=== PATIENT | female | born 1980 | race Caucasian/White ===

== ENCOUNTER 2017-02-15 20:38 | Observation (INO) | payer SELFPAY ==
[~2017-02-15] VITALS: Ht 162.6 cm; Wt 56.6 kg
--- NOTE | 2017-02-15 20:38 | NUR ---
ROOM PATIENT TO ROOM VIA EMS COT. REPORT RECEIVED. CARES ASSUMED.
[2017-02-15] MEDS ORDERED: HALOPERIDOL 5 MG/ML INJECTION IV ONE (21:00)
--- NOTE | 2017-02-15 21:00 | NUR ---
1:1 PATIENT NEEDS 1:1 CARE DUE TO HER BEING A HARM TO HERSELF. SHE IS HIGHLY AGITATED AND TWEAKING FROM DRUGS.
--- NOTE | 2017-02-15 21:07 | NUR ---
ELIMINATION PATIENT AMBULATES TO BATHROOM FOR UA
--- NOTE | 2017-02-15 21:11 | ERPDOC ---
Departure Disposition Decision Date: Feb 16, 2017 Disposition Decision Time: 01:42 Disposition: 02 TO [facility] Impression Impression Impression: Primary Impression: Mental status change Additional Impressions: Hypothyroid Drug ingestion Chronic mental illness Severity: Moderate Condition: Stable Seen By: Physician only Problems/Meds/Labs Reviewed?: Yes Medications reviewed and manag: Yes Follow up care ordered?: Yes Mental Status: Confused HPI - General Medical General Chief Complaint: Psychiatric Problems Stated Complaint: AGITATION Time Seen by Provider: 20:54 HPI - General Medical Initial Comments 36-year-old female high on methamphetamine and pain pills. Patient got out of long term yesterday after six-month sentence, she immediately got a hold of "ice" and smoked it and a pain pill. She is court ordered to be admitted to [facility] facility. She had some friends primary doctor up with the drugs. She is aggressively ranting and raving, unable to make coherent sentence, very animated , nearly bouncing off the quinn. She refuses Ativan, stating that God says only Ativan works for her. Allergies: Coded Allergies: carbamazepine (Verified Allergy, Intermediate, 02/15/17) SKIN RASH Past History Unable to Obtain PMH Due to: intoxication Patient Medical History Problem List Updates: Drug addiction Patient Surgical History Unknown Review of Systems Unable to Obtain ROS Due to: intoxication Physical Exam General Vitals and Pain First Documented Vital Signs Date Time Temp Pulse Resp B/P Pulse Ox O2 Delivery O2 Flow Rate FiO2 02/15/17 21:38 97.6 120 18 127/90 97 Room Air Weight: Kilograms: Height (feet): Height (inches): Triage Pain Scale: Differential Diagnoses Considering: Drug Overdose, Medication Effect, Psychosis, Other (drug intoxication) Progress Results/Orders Orders Procedure Category Date Status Time Haloperidol Lactate PHA 02/15/17 Complete (Haldol 5 Mg/Ml Inj) 21:00 Asenapine Maleate PHA 02/15/17 Complete (Saphris) 21:15 Lorazepam (Ativan) PHA 02/15/17 Complete 21:15 Cmp - Comprehensive LAB 02/15/17 Complete Metabolic 21:23 Cbc W/Auto LAB 02/15/17 Complete Diff-Reflex Manual 21:23 Ethanol LAB 02/15/17 Complete 21:23 Tsh - Thyroid Stim LAB 02/15/17 Complete Hormone 21:23 D-Dimer LAB 02/15/17 Complete 21:23 Acetaminophen LAB 02/15/17 Complete 21:23 Salicylate LAB 02/15/17 Complete 21:23 Ua, Dip Wreflex LAB 02/15/17 Complete Microsc & Ceramist 21:23 Drug Screen LAB 02/15/17 Complete Urine-Test At [facility] 21:23 LAB 02/15/17 Complete Qualitative, Urine 21:23 Iv Lock (Ed Only) EDM 02/15/17 Transmitted 21:23 Asenapine Maleate PHA 02/15/17 Logged (Saphris) 22:45 Chest, Pa & Lateral RAD 02/15/17 Taken 22:47 Lorazepam (Ativan) PHA 02/15/17 Complete 23:45 Lab Results Laboratory Tests Test 02/15/17 21:11 White Blood Count 15.2T/MM3 Red Blood Count 4.51M/MM3 Hemoglobin 12.8GM/DL Hematocrit 37.4% Mean Corpuscular Volume 82.9UM3 Mean Corpuscular Hemoglobin 28.4UUG Mean Corpuscular Hemoglobin Concent 34.2GM/DL RDW Standard Deviation 39.7FL Platelet Count 296T/MM3 Mean Platelet Volume 12.0UM3 Immature Granulocyte % (Auto) % Neutrophils (%) (Auto) % Lymphocytes (%) (Auto) % Monocytes (%) (Auto) % Eosinophils (%) (Auto) % Basophils (%) (Auto) % Absolute Immature Granulocyte (auto T/MM3 Absolute Neutrophils (auto) T/MM3 Absolute Lymphocytes (auto) T/MM3 Absolute Monocytes (auto) T/MM3 Absolute Eosinophils (auto) T/MM3 Absolute Basophils (auto) T/MM3 Neutrophils % (Manual) 69.0% Band Neutrophils % 1.0% Lymphocytes % (Manual) 21.0% Monocytes % (Manual) 8.0% Eosinophils % (Manual) 1.0% Absolute Neutrophils (Manual) 10.5T/MM3 Band Neutrophils # 0.2T/MM3 Lymphocytes # (Manual) 3.2T/MM3 Monocytes # (Manual) 1.2T/MM3 Eosinophils # (Manual) 0.2T/MM3 Red Cell Morphology Comment Normal D-Dimer 198NG/ML Urine Collection Type Voided-not cc-midstr Urine Color Yellow Urine Turbidity Clear Urine pH 5.0 Urine Specific Henriette >=1.030 Urine Protein Trace Urine Glucose (UA) Negative Urine Ketones Trace Urine Blood Negative Urine Nitrite Negative Urine Bilirubin 1+ Urine Urobilinogen 0.2EU/DL Urine Leukocyte Esterase Negative Urinalysis Comment Microscopic not ind. Urine Test Negative Turbidity < 20 Sodium Level 144MEQ/L Potassium Level 3.7MEQ/L Chloride Level 105MEQ/L Carbon Dioxide Level 25MEQ/L Anion Gap 14MEQ/L Blood Urea Nitrogen 17.0MG/DL Creatinine 1.0MG/DL Glomerular Filtration Rate Calc 63 BUN/Creatinine Ratio 17RATIO Glucose Level 148MG/DL Calculated Osmolality 282MOSM/KG Calcium Level 9.8MG/DL Total Bilirubin 1.10MG/DL Icterus Index < 2 Aspartate Amino Transf (AST/SGOT) 94U/L Alanine Aminotransferase (ALT/SGPT) 39U/L Alkaline Phosphatase 77U/L Total Protein 8.4G/DL Albumin 4.8G/DL Globulin 3.6G/DL Albumin/Globulin Ratio 1.3RATIO Thyroid Stimulating Hormone (TSH) 8.86MIU/L Chemistry Specimen Hemolysis < 15 Salicylates Level < 1.0MG/DL Urine Opiates Screen PositiveNG/ML Urine Oxycodone Screen NegativeNG/ML Urine Methadone Screen NegativeNG/ML Urine Propoxyphene Screen NegativeNG/ML Acetaminophen Level < 10UG/ML Urine Barbiturates Screen NegativeNG/ML Urine Tricyclic Antidepressants PositiveNG/ML Urine Phencyclidine Screen NegativeNG/ML Urine Amphetamines Screen PositiveNG/ML Urine Methamphetamines Screen PositiveNG/ML Urine Benzodiazepines Screen NegativeNG/ML Urine Cocaine Screen PositiveNG/ML Urine Cannabinoids Screen PositiveNG/ML Urine Drug Screen Confirmation Sent out Urine Drug Screen Information Pending Alcohol, Quantitative <10MG/DL Medications Current ED Medications Haloperidol Lactate (Haldol 5 Mg/ml Inj) 5 mg O ONCE IV ; Start 02/15/17 at 21: 00; Stop 02/15/17 at 21:01; Status DC Asenapine (Saphris) 5 mg O ONCE SL Last administered on 02/15/17 21:21; Start 02/15/17 at 21:15; Stop 02/15/17 at 21:16; Status DC Lorazepam (Ativan) 1 mg O ONCE IV Last administered on 02/15/17 21:22; Start 02/15/17 at 21:15; Stop 02/15/17 at 21:16; Status DC Asenapine (Saphris) 5 mg O ONCE SL ; Start 02/15/17 at 22:45; Stop 02/15/17 at 22 :46; Status UNV Lorazepam (Ativan) 1 mg O ONCE IV ; Start 02/15/17 at 23:45; Stop 02/15/17 at 23: 46; Status DC Progress Progress Patient's labs returned showing mildly elevated TSH of 8.8, white blood count of 15.2 and tox screen positive for opiate tricyclic amphetamine methamphetamine and cocaine and cannabinoids. She was brought to ED due to aggressive behavior which intimidated the patient's at the rehabilitation. Screen was attempted but unable to be completed due to effect of ingested drugs. She will be admitted to observation, given IV fluids and placed on telemetry while she metabolizes the drugs. Psych will return in reevaluate her in the morning to determine need for psychiatric hold versus other treatments. Question becomes if this is delirium or toxic encephalopathy from the drugs. JUSTINE VALDOVINOS MD Feb 15, 2017 21:11
[2017-02-15] MEDS ORDERED: ASENAPINE 5mg SUBLINGUAL TAB SL ONE ×2 (21:15→22:45)
[2017-02-15] MEDS ORDERED: LORAZEPAM 2 MG/ML INJECTION IV ONE ×2 (21:15→23:45)
[2017-02-15 21:33] LABS: BLOOD, URINE NEGATIVE (NEGATIVE); COLOR,URINE YELLOW (YELLOW); LEUKOCYTE ESTERASE ,URINE NEGATIVE (NEGATIVE); NITRITE,URINE NEGATIVE (NEGATIVE); UROBILINOGEN,URINE 0.2 EU/DL (NORMAL)
[2017-02-15 21:34] LABS: HCT - HEMATOCRIT 37.4 % (36-46); HGB - HEMOGLOBIN 12.8 GM/DL (12-16); MEAN CORPUSCULAR HGB 28.4 UUG (26-34); MEAN CORPUSCULAR HGB CONC(MCHC 34.2 GM/DL (31-37); MEAN CORPUSCULAR VOLUME 82.9 UM3 (80-100); RED BLOOD COUNT 4.51 M/MM3 (4.00-5.20); WBC - WHITE BLOOD COUNT 15.2 T/MM3 (4.5-11.0)
[2017-02-15] MEDS ORDERED: QUET200T PO (21:37)
[2017-02-15] MEDS ORDERED: BUPR150T3 (21:37)
[2017-02-15] MEDS ORDERED: CITA40TA14 PO (21:37)
[2017-02-15 21:39] LABS: ACETAMINOPHEN < 10 UG/ML (10-30); ALBUMIN 4.8 G/DL (3.5-5.0); ALBUMIN/GLOBULIN RATIO 1.3 RATIO (1.1-2.2); ALKALINE PHOSPHATASE 77 U/L (38-126); ALT (SGPT) 39 U/L (9-52); ANION GAP 14 MEQ/L (5-15); AST (SGOT) 94 U/L (14-36); BUN/CREATININE RATIO 17 RATIO (6-26); CALCIUM 9.8 MG/DL (8.4-10.2); CHLORIDE 105 MEQ/L (98-107); CO2 - CARBON DIOXIDE 25 MEQ/L (22-30); ETHANOL <10 MG/DL (<10); GLOMERULAR FILTRATION RATE 63; GLUCOSE 148 MG/DL (65-110); POTASSIUM 3.7 MEQ/L (3.6-5); SALICYLATE < 1.0 MG/DL (2-20); SODIUM 144 MEQ/L (134-144); TOTAL PROTEIN 8.4 G/DL (6.3-8.2)
[2017-02-15 21:43] LABS: AMPHETAMINE SCREEN,URINE POSITIVE; BARBITURATE SCREEN,URINE NEGATIVE; BENZODIAZEPINES SCREEN,URINE NEGATIVE; CANNABINOID SCREEN,URINE POSITIVE; COCAINE SCREEN,URINE POSITIVE; METHADONE SCREEN, URINE NEGATIVE; METHAMPHETAMINE SCREEN, URINE POSITIVE; OPIATE SCREEN,URINE POSITIVE; PHENCYCLIDINE SCREEN,URINE NEGATIVE; TRICYCLIC ANTIDEPRESSANT,URINE POSITIVE
[2017-02-15 21:47] LABS: BAND NEUTROPHILS # 0.2 T/MM3; EOSINOPHILS # (MANUAL) 0.2 T/MM3 (0-0.5); LYMPHOCYTES # (MANUAL) 3.2 T/MM3 (1-4.8); MONOCYTES # (MANUAL) 1.2 T/MM3 (0-0.8); NEUTROPHILS #(MANUAL)-ABSOLUTE 10.5 T/MM3 (1.8-7.7); TOTAL CELLS COUNTED 100 %
[2017-02-15 22:24] LABS: THYROID STIM HORMONE-TSH 8.86 MIU/L (0.47-4.68)
--- NOTE | 2017-02-15 23:00 | NUR ---
COMMUNICATION ZOIE, SCREENER WITH PV CALLS AND STATES HE WILL BE ON THE WAY TO COME IN AND SCREEN THE PT.
--- NOTE | 2017-02-15 23:45 | NUR ---
[facility], [facility] SCREENER HERE TO SCREEN PATIENT.
--- NOTE | 2017-02-16 00:15 | NUR ---
ELIMINATION PATIENT AMBULATES TO BATHROOM. PATIENT IS GROGGY FROM MEDICATIONS.
--- NOTE | 2017-02-16 00:27 | NUR ---
COMMUNICATION ZOIE FROM [facility] MAKES PHONE CALLS TO FIND PLACEMENT FOR PATIENT.
--- NOTE | 2017-02-16 01:15 | NUR ---
STATUS PT IS AWOKE TO OBTAIN VITAL SIGNS, PT AWAKES EASILY, IS APPROPRIATE, AND DENIES ANY NEEDS AT THIS TIME. THANKS STAFF.
--- NOTE | 2017-02-16 01:40 | NUR ---
REPORT GIVEN TO MAGNOLIA ERICKSON AT THIS TIME.
[2017-02-16] MEDS ORDERED: HALOPERIDOL 5 MG/ML INJECTION IV PRN (01:45)
[2017-02-16] MEDS ORDERED: LORAZEPAM 2 MG/ML INJECTION IV PRN (01:45)
--- NOTE | 2017-02-16 02:10 | NUR ---
arrival to unit patient arrived via cart from ed. patient is a&o x3, but falls asleep during conversation. positioned for comfort. vss. room air.
--- NOTE | 2017-02-16 02:10 | NUR ---
DEPART PT IS TAKEN VIA CART TO ROOM 144 AT THIS TIME, MAGNOLIA ERICKSON PRESENT TO ACCEPT PT. PT TRANSFERS SELF FROM CART TO BED, UNDRESSES AND CLIMBS UP INTO BED.
[2017-02-16 02:13] VITALS: Ht 162.6 cm; Wt 56.6 kg
[2017-02-16 02:22] VITALS: BP 112/67; PULSE 96; RESP 16; TEMP 96.2; O2SAT 98
--- NOTE | 2017-02-16 03:01 | HPPDOC ---
TARAS NOWAK MD 02/16/17 0252: HPI - Adult Date DATE: 02/16/17 TIME: 02:47 General Chief Complaint: racing thoughts History of Present Illness Please note that the patient was seen via telemedicine with nursing assistance on 02/16/2017. Ms. Jimenez is a 36yo woman with h/o bipolar disorder, ADD, back pain from cervical disk disease, who [facility] in [facility] with a few of her seroquel and other med available. She had a court order after the 6 month incarceration for drug rehab and was to check into [facility], within 24 hours. 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 She will not admit that now, but recognizes racing thoughts improved after 2mg IV ativan and saphris in the ED. No other fevers, sob, pain except in the neck and chronic. She is not a good historian, and please see ED staff note. She states bipolar had been stable on the wellbutrin, citalopram, and seroquel, but she was not given more than a couple day supply. Past Medical History Past Medical History Patient's Medical History: (1) Bipolar disorder (2) ADD (attention deficit disorder) (3) Cervical disc disease (4) Polysubstance abuse Drug addiction Surgical History Patient's Surgical History: C-sections Current Medications Home Meds Reported Medications Quetiapine Fumarate (Seroquel) 200 Mg Tablet, 200 MG PO BID, TAB 02/15/17 Citalopram Hydrobromide (Celexa) 40 Mg Tablet, 1 TAB PO DAILY, TAB 02/15/17 Bupropion HCl (Wellbutrin Sr) 150 Mg Tablet, BID 02/15/17 Allergies: Coded Allergies: carbamazepine (Verified Allergy, Intermediate, 02/15/17) SKIN RASH Family History Family History: parents alive with mental illness Social History Smoking Status: Current every day smoker Substance Use Type: amphetamines, opiates, methamphetamine Marital Status: Single Current Occupational Status: unemployed Advance Directives: No DPOA for Healthcare Only Social History Comments parents alive with mental illness Review of Systems Unable to Obtain ROS Due to: clinical condition Comments 10+ systems negative or incomplete due to acute mental illness Physical Exam General General Nourishment: thin General Body Habitus: disheveled Vital Signs Vital Signs Date Time Temp Pulse Resp B/P Pulse Ox O2 Delivery O2 Flow Rate FiO2 02/16/17 02:22 96.2 96 16 112/67 98 Room Air Height (Feet): 5 Height (Inches): 4.00 Telemetry Rhythm: Sinus Rhythm Eyes Brief: FOUND: EOMI Respiratory Brief: FOUND: clear all whyte, equal bilaterally, symmetrical, NOT FOUND: wheezes Cardiovascular (brief) Cardiac Brief: FOUND: regular rate, regular rhythm, NOT FOUND: pedal edema Capillary Refill: <2 sec Abdomen (brief) Abdominal Brief: FOUND: BS normo active x4 Integumentary (brief) Integumentary Brief: FOUND: pink Neurologic (brief) Neurological Brief: FOUND: cranial 2-12 intact Comments alert but not fully oriented, with no lateralizing signs, disorganized thoughts Neurologic RN Documented GCS Eye Opening: Verbal: Motor: Total: Laboratory Laboratory Tests Test 02/15/17 21:11 White Blood Count 15.2T/MM3 Red Blood Count 4.51M/MM3 Hemoglobin 12.8GM/DL Hematocrit 37.4% Mean Corpuscular Volume 82.9UM3 Mean Corpuscular Hemoglobin 28.4UUG Mean Corpuscular Hemoglobin Concent 34.2GM/DL RDW Standard Deviation 39.7FL Platelet Count 296T/MM3 Mean Platelet Volume 12.0UM3 Immature Granulocyte % (Auto) % Neutrophils (%) (Auto) % Lymphocytes (%) (Auto) % Monocytes (%) (Auto) % Eosinophils (%) (Auto) % Basophils (%) (Auto) % Absolute Immature Granulocyte (auto T/MM3 Absolute Neutrophils (auto) T/MM3 Absolute Lymphocytes (auto) T/MM3 Absolute Monocytes (auto) T/MM3 Absolute Eosinophils (auto) T/MM3 Absolute Basophils (auto) T/MM3 Neutrophils % (Manual) 69.0% Band Neutrophils % 1.0% Lymphocytes % (Manual) 21.0% Monocytes % (Manual) 8.0% Eosinophils % (Manual) 1.0% Absolute Neutrophils (Manual) 10.5T/MM3 Band Neutrophils # 0.2T/MM3 Lymphocytes # (Manual) 3.2T/MM3 Monocytes # (Manual) 1.2T/MM3 Eosinophils # (Manual) 0.2T/MM3 Red Cell Morphology Comment Normal D-Dimer 198NG/ML Urine Collection Type Voided-not cc-midstr Urine Color Yellow Urine Turbidity Clear Urine pH 5.0 Urine Specific Yawkey >=1.030 Urine Protein Trace Urine Glucose (UA) Negative Urine Ketones Trace Urine Blood Negative Urine Nitrite Negative Urine Bilirubin 1+ Urine Urobilinogen 0.2EU/DL Urine Leukocyte Esterase Negative Urinalysis Comment Microscopic not ind. Urine Test Negative Turbidity < 20 Sodium Level 144MEQ/L Potassium Level 3.7MEQ/L Chloride Level 105MEQ/L Carbon Dioxide Level 25MEQ/L Anion Gap 14MEQ/L Blood Urea Nitrogen 17.0MG/DL Creatinine 1.0MG/DL Glomerular Filtration Rate Calc 63 BUN/Creatinine Ratio 17RATIO Glucose Level 148MG/DL Calculated Osmolality 282MOSM/KG Calcium Level 9.8MG/DL Total Bilirubin 1.10MG/DL Icterus Index < 2 Aspartate Amino Transf (AST/SGOT) 94U/L Alanine Aminotransferase (ALT/SGPT) 39U/L Alkaline Phosphatase 77U/L Total Protein 8.4G/DL Albumin 4.8G/DL Globulin 3.6G/DL Albumin/Globulin Ratio 1.3RATIO Thyroid Stimulating Hormone (TSH) 8.86MIU/L Chemistry Specimen Hemolysis < 15 Salicylates Level < 1.0MG/DL Urine Opiates Screen PositiveNG/ML Urine Oxycodone Screen NegativeNG/ML Urine Methadone Screen NegativeNG/ML Urine Propoxyphene Screen NegativeNG/ML Acetaminophen Level < 10UG/ML Urine Barbiturates Screen NegativeNG/ML Urine Tricyclic Antidepressants PositiveNG/ML Urine Phencyclidine Screen NegativeNG/ML Urine Amphetamines Screen PositiveNG/ML Urine Methamphetamines Screen PositiveNG/ML Urine Benzodiazepines Screen NegativeNG/ML Urine Cocaine Screen PositiveNG/ML Urine Cannabinoids Screen PositiveNG/ML Urine Drug Screen Confirmation Sent out Alcohol, Quantitative <10MG/DL Assessment & Plan Problems: (1) Encephalopathy acute Status: Acute Assessment & Plan: toxic encephalopathy due to polysubstance abuse and ? delirium from psychiatric disease as well. obs admit with IVF and supportive care with AM psych eval for services/plan. prn ativan and haldol. (2) Polysubstance abuse Status: Acute (3) Bipolar disorder Status: Chronic Assessment & Plan: likely same wellbutrin, citalopram and seroquel (4) ADD (attention deficit disorder) Status: Chronic (5) Cervical disc disease Status: Chronic (6) Elevated TSH Assessment & Plan: she is unaware of previous hypothyroid, and will check T4 to see if therapy warranted with noted hyperglycemia recheck as well. Leukocytosis likely demargination from drugs, with no fever and UA no infection. Code Status Full Code Hospital Course Summary Disclaimer The hospital course summary below is not to be considered part of the above Progress Note. SHERYL HERNANDEZ MD 02/16/17 7934: Past Medical History Current Medications Home Meds Reported Medications Quetiapine Fumarate (Seroquel) 200 Mg Tablet, 200 MG PO BID, TAB 02/15/17 Citalopram Hydrobromide (Celexa) 40 Mg Tablet, 1 TAB PO DAILY, TAB 02/15/17 Bupropion HCl (Wellbutrin Sr) 150 Mg Tablet, BID 02/15/17 Allergies: Coded Allergies: carbamazepine (Verified Allergy, Intermediate, 02/15/17) SKIN RASH Assessment & Plan Assessment Dr. Nowak's note reviewed, patient interviewed and examined. [id number]-old female discharged from [facility] days ago with subsequent methamphetamine and crack cocaine use. She was supposed to transfer immediately to inpatient drug rehabilitation from [facility] but cites several reasons this did not happen (psychiatric medications not called to the pharmacy in [place], transportation difficulties, etc.) prompting drug use described above. She presented to the emergency room and [place] last night where she was described as aggressively ranting and raving, unable to make coherent sentences, animated and nearly bouncing off the quinn. She refused Ativan citing God is the reason. Urine drug screen was positive for opiates, tricyclics, amphetamines, methamphetamine, cocaine, and marijuana. She was admitted for detox prior to transfer to drug rehabilitation. This morning the patient continues to blame circumstances for her failure to report to [facility] immediately after release from [facility] but is insistent that she wants to go to rehabilitation and pursue sobriety. She is able to describe her home medication/psychiatric regimen prescribed by a mental health facility in [place]. She received Haldol earlier this morning for agitation. PH/SH/FH-as above plus bilateral tubal ligation and prior biopsy right breast for benign disease. ROS-10 point review of systems is negative, last menstrual period was 02/03.EXAM General-temperature 98.0, blood pressure 118/67; NAD, alert, fluent speech HEENT-conjunctiva clear, sclera anicteric, EOMI, conjugate gaze, facial structure symmetric, oral membranes clear Lungs-respirations nonlabored, good airflow compressed sounds clear anteriorly and posteriorly Cardiac-regular rate/rhythm, S1-S2 Abd-soft, nontender, bowel sounds present, no palpable mass Ext-without edema Skin-a few small scattered bruises, puncture sites right wrist consistent with injection sites Neuro-moving all extremities well, no drift upper extremity, normal motor tone and power proximal/distal upper and lower extremities, sensation intact 4, cranial nerves II through XII intact Psych-cooperative, mild anxiety demonstrated with push of speech. Did not demonstrate paranoia during examination. Chest x-ray reviewed by myself-MADI. Laboratory data notable only for minor elevation of AST and TSH with normal free T4. UDS as previously noted. Resume home psychiatric regimen with Wellbutrin, Celexa, and Seroquel. Patient medically stable, anxious to continue drug rehabilitation. Stable for transfer to inpatient rehabilitation at [facility] after brief stay for continued detox at [facility] in [place]. Discharge to [facility] at this time. Please note patient was caught with powdered white substance in her room which she indicated was her Wellbutrin tablet that she had pocketed. She was preparing to snort the powder when caught by nursing staff. Substance removed from the room. Plan/Intensity of Service Chest x-ray reviewed by myself, laboratory data reviewed. Multiple conversation with nursing/case management regarding disposition. TARAS NOWAK MD Feb 16, 2017 02:52 SHERYL HERNANDEZ MD Feb 16, 2017 14:53
[2017-02-16] MEDS: LR 1,000 ML IV SCH ×2 (03:04→12:11)
[2017-02-16 04:15] VITALS: BP 126/75; PULSE 86; RESP 16; TEMP 96.4; O2SAT 99
[2017-02-16 05:29] LABS: BASOPHILS # (AUTO) 0.1 T/MM3 (0-0.2); BASOPHILS % (AUTO) 0.6 % (0-2); EOSINOPHILS # (AUTO) 0.2 T/MM3 (0-0.5); EOSINOPHILS % (AUTO) 1.7 % (0-4); HCT - HEMATOCRIT 35.5 % (36-46); HGB - HEMOGLOBIN 11.5 GM/DL (12-16); IMMATURE GRANULOCYTE # (AUTO) 0.01 T/MM3 (0.00-0.03); IMMATURE GRANULOCYTE % (AUTO) 0.1 % (0.0-0.5); LYMPHOCYTES % (AUTO) 22.5 % (23-45); MEAN CORPUSCULAR HGB 27.6 UUG (26-34); MEAN CORPUSCULAR HGB CONC(MCHC 32.4 GM/DL (31-37); MEAN CORPUSCULAR VOLUME 85.3 UM3 (80-100); MEAN PLATELET VOLUME 11.7 UM3 (9.4-12.4); MONOCYTES # (AUTO) 0.9 T/MM3 (0-0.8); MONOCYTES % (AUTO) 9.8 % (0-9.0); NEUTROPHILS #(AUTO)-ABSOLUTE 5.8 T/MM3 (1.8-7.7); NEUTROPHILS % (AUTO) 65.3 % (33-66); RED BLOOD COUNT 4.16 M/MM3 (4.00-5.20); WBC - WHITE BLOOD COUNT 8.8 T/MM3 (4.5-11.0)
--- NOTE | 2017-02-16 07:10 | NUR ---
BEGINNING OF SHIFT PT IS SLEEPING AT THIS TIME, BEDSIDE REPORT RECEIVED FROM MAGNOLIA ERICKSON. WILL CONTINUE TO MONITOR PT, LR RUNNING AT 100ML/HR. HR STABLE ON MONITOR. WILL CONTINUE TO MONITOR.
[2017-02-16 08:00] VITALS: BP 118/67; PULSE 87; RESP 14; TEMP 98; O2SAT 100
--- NOTE | 2017-02-16 08:32 | DI ---
INDICATION: ITS.REASON: medical screen, drug abuse. PROCEDURE: CHEST 2-VIEWS UPRIGHT (PA \T\ LAT) Encounter: Initial COMPARISON: None FINDINGS: The lungs are clear without evidence of focal abnormal airspace opacity. There is no pleural effusion or pneumothorax. The heart size, mediastinal contours and pulmonary vascularity are within normal limits. There is no significant skeletal abnormality. IMPRESSION: No acute cardiopulmonary disease. .
--- NOTE | 2017-02-16 08:45 | NUR ---
UPDATE PT BECOMES AGITATED, STATES SHE NEEDS ALL HER THINGS FROM THE REHAB FACILITY SHE WAS AT, PT STARTS PACING IN ROOM. SHE IS UPSET ABOUT NOT HAVING HER MEDICATIONS.PT IS INFORMED OF HER PLAN OF CARE AND THAT SHE WILL BE EVALUATED BY XAVI BARROW TODAY. CASE MANAGEMENT WILL BE PAGED TO SPEAK TO PT IN REGARDS TO HER MEDICATIONS AND HER BELONGINGS THAT PT ASSURES ARE STILL IN REHAB FACILITY. BAG WITH PTS CLOTHING IS IN CLOSET, NO OTHER BELONGINGS ARE FOUND IN ROOM AT THIS TIME. WILL MEDICATE PT WITH ATIVAN AND HALDOL ORDERED AND WILL CONTINUED TO MONITOR PATIENT.
--- NOTE | 2017-02-16 10:48 | NUR ---
CM THIS WORKER MET WITH PT ON THIS DATE. PT IS WANTING TO TRY AND RETURN TO TREATMENT AT [facility] IF POSSIBLE. PT ADMITTED TO USING DRUGS ON HER WAY TO TREATMENT YESTERDAY. THIS WORKER OBTAINED PERMISSION FROM PT TO CONTACT [facility]. PT WAS PRESENT AT THIS TIME OF HIS CALL. THIS WORKER SPOKE TO DILAN PATEL AT [facility]. EXPLAINED THAT PT WOULD LIKE TO RETURN TO COMPLETE TREATMENT. [facility] REQUESTING AN EVALUATION PRIOR TO DECISION MADE TO ACCEPT PT. THIS WORKER EXPLAINED THAT PT WAS VISITED BY SAMAN BARROW LAST NIGHT. [facility]. SPOKE TO [facility]A [facility]. SHAKILA WILL STAFF WITH [employer] CHILDCARE TEACHER, ZOIE, AND WILL PLAN TO CALL TO COORDINATE WITH [facility] FOR POSSIBLE ADMISSION TO [facility]. THIS WORKER SPOKE TO PT REGARDING TREATMENT. PT REPORTED THAT SHE IS WILLING TO GO TO TREATMENT AND "HAS TO GO." PT REQUESTED THIS WORKER'S HELP IN FINDING TREATMENT OPTIONS FOR HER. THIS WORKER CALLED AND SPOKE TO [facility]- NO ABLE TO TAKE PT DUE TO NO FUNDING SOURCE, CALL TO [facility] IN [place]-NO BED AVAILABLE UNTIL APRIL. SPOKE TO [facility] -NO OPENING UNTIL MARCH 13.
--- NOTE | 2017-02-16 10:52 | NUR ---
UPDATE PT WAS ABLE TO SPEAK TO MANAGER MARKET. PT IS CURRENTLY SLEEPING. WILL CONTINUE TO MONITOR.
--- NOTE | 2017-02-16 11:26 | NUR ---
JAMEL THIS WORKER SPOKE WITH ZOIE FROM [facility] AT THIS TIME. ZOIE REPORTED THAT HE HAD SPOKE TO DIRECTOR AT [facility] REGARDING EVALUATION THAT WAS COMPLETED BY PV. ZOIE REPORTED THAT [facility] WOULD BE CALLING THIS WORKER FOR A DETERMINATION ON ACCEPTING PT INTO INPT TREATMENT. THIS WORKER VISITED WITH PT AND EXPLAINED THAT [facility] WAS STILL AWAITING DECISION TO TAKE HER FOR INPATIENT TREATMENT. PT REPORTED WILLINGNESS TO GO TO INPATIENT TREATMENT AT [facility]. PT DENYING THOUGHTS OF HOMICIDAL AND SUICIDAL IDEATIONS. UPDATE TO PHYSICIAN AT THIS TIME.
--- NOTE | 2017-02-16 11:45 | NUR ---
UPDATE PT SPEAKING TO DR HERNANDEZ AT THIS TIME. CASE MANAGEMENT NOTIFIES THIS RN PT WILL BE GOING TO A DETOX FACILITY IN [place] THIS AFTERNOON.
[2017-02-16] MEDS ORDERED: BuPROPion SR (12 HR) 150 MG TABLET PO SCH (12:00)
[2017-02-16] MEDS: QUETIAPINE 200 MG TABLET PO SCH ×2 (12:00→15:43)
[2017-02-16 12:02] VITALS: BP 111/62; PULSE 86; RESP 12; TEMP 96.9; O2SAT 100
--- NOTE | 2017-02-16 12:30 | NUR ---
UPDATE PT REQUEST TO TAKE A SHOWER, SHE IS GIVEN A CLEAN GOWN AND TOWEL WELL SOAP AND DEODORANT. THIS RN STEPS OUT FOR 2 MINS TO GET A PAIR OF SOCKS AND WHEN GOING BACK INTO THE PTS BATHROOM FOUND PT KNEELING ON THE FLOOR WITH A PIECE OF PAPER SHE RIPPED OFF FROM ONE OF THE FORMS IN THE ROOM. PT STATED SHE HAD KEPT THE WELLBUTRIN AND SHE SMASHED IT ON THE FLOOR TO THEN PICK IT UP AND PLACE IT IN A DRINK. FORM WAS TAKEN AWAY FROM PT AND WAITED FOR PT TO TAKE SHOWER. DR HERNANDEZ AND ROLL FORMING MACHINE OPERATOR SHARA NOTIFIED OF INCIDENT, SAMPLE PICKED FROM THE FLOOR AND HANDED OVER TO PHARMACY/LAB FOR TESTING.
--- NOTE | 2017-02-16 13:00 | NUR ---
UPDATE AFTER INCIDENT PTS ROOM AND BELONGINGS WAS SEARCHED BY THIS RN AND STUDENT RN, NO DRUGS WERE FOUND. WILL CONTINUE TO MONITOR PT.
--- NOTE | 2017-02-16 14:31 | NUR ---
CM UPDATE TO JUSTIN FROM [facility] AT THIS TIME REGARDING INCIDENT. JUSTIN REPORTED THAT THEY WILL STILL BE ABLE TO TAKE PT TO SOCIAL DETOX ON THIS DATE. UPDATED NURSING AND PHYSICIAN AT THIS TIME.
--- NOTE | 2017-02-16 15:05 | DSPDOC ---
Discharge Summary Date 02/16/17 Acute encephalopathy due to drug ingestion Polysubstance abuse Bipolar affective disorder ADD Please refer to admission note dated earlier today for details of admission and hospital stay. Patient discharged to [facility] for further detox prior to transfer to [facility] for drug rehabilitation. She remains on her home doses of Celexa, Seroquel, and Wellbutrin as described in admission H&P. SHERYL HERNANDEZ MD Feb 16, 2017 15:05
--- NOTE | 2017-02-16 15:30 | NUR ---
CM THIS WORKER SPOKE WITH PT ON THIS DATE. PT IS AWARE OF DISCHARGE PLAN WITH PLAN TO BE PICKED UP BY [facility] STAFF AND TAKEN TO DETOX IN [place] WITH THE PLAN TO RETURN TO [facility] AFTER DETOX. THIS WORKER SPOKE TO JUSTIN [phone] AT [facility] AND THEY WILL PLAN TO WASTE WATER OR WATER PLANT OPERATOR PT FROM HOSPITAL. NOTIFIED PRIMARY NURSE.
--- NOTE | 2017-02-16 16:00 | NUR ---
DISMISSAL UPDATE PT IS ACCOMPANIED BY DIET ATTENDANT TO ER ENTRANCE TO WAIT FOR TRANSPORT.
== END 2017-02-16 16:15 ==
LOC: ED 20:38 → EDHOLD 02-16 01:26 → MED 02-16 02:10
PROVIDERS: ADMIT Hospitalist; ATTEND Internal Medicine
DX: T43.621A Poisoning by amphetamines, accidental (unintentional), initial encounter (principal); T50.991A Poisoning by other drugs, medicaments and biological substances, accidental (unintentional), initial encounter; G92 Toxic encephalopathy; F19.20 Other psychoactive substance dependence, uncomplicated; Y92.89 Other specified places as the place of occurrence of the external cause; F31.9 Bipolar disorder, unspecified; F98.8 Other specified behavioral and emotional disorders with onset usually occurring in childhood and adolescence; R79.89 Other specified abnormal findings of blood chemistry; D72.829 Elevated white blood cell count, unspecified; F41.9 Anxiety disorder, unspecified; Z79.899 Other long term (current) drug therapy
CPT/HCPCS: 36415; 80053; 80306; 80307; 81003; 81025; 84439; 84443; 85025; 85379; 96361; 96374; 96375; 99218

== ENCOUNTER 2017-05-22 00:52 | Observation (INO) ==
[2017-05-22] MEDS ORDERED: QUETIAPINE 200 MG TABLET PO ONE (01:11)
[2017-05-22] MEDS ORDERED: SALINE FLUSH 10ml SYRINGE IVF PRN (01:11)
--- NOTE | 2017-05-22 01:20 | Emergency Department Report ---
Psych HPI - General Chief Complaint: Psychiatric Symptoms Stated Complaint: Anxiety Time Seen by Provider: 05/22/17 01:11 - History of Present Illness HPI Narrative: 36-year-old female presents by EMS with racing heartbeat and hallucination. She is convinced that somebody is poisoning her through the year and that she get given some bad methamphetamine. She moved from [facility] to [facility] to go to a rehabilitation facility. However she did not stay there and is now living under a bridge in town. She has been on a meth jag for at least 5 days. However she states that she has not used since Sunday morning, approximately 36 hours ago. She has started having "dreams" and recognizes that they are not real , but is very uncomfortable with him and feels like people are trying to hurt her or poison her. In discussion she is very clear and understandable. She vacillates between being coherent and wandering off into descriptions of these dreams. She states that she smokes meth, has not injected it since February 14 or . She knows what a synthetic is and states that she has not messed with them. However she also states somebody could always have given her something and she didn't know about it. She is determined that she is not used anything by choice since Sunday. - Related Data Home Medications Medication Instructions Recorded Confirmed Citalopram Hydrobromide [Celexa] 0.5 tab PO DAILY #0 tab 02/15/17 05/22/17 Quetiapine [SEROquel] 100 mg PO BID #0 tab 02/15/17 05/22/17 buPROPion HCl [Bupropion Xl] 150 mg PO BID #0 02/15/17 05/23/17 Allergies Allergy/AdvReac Type Severity Reaction Status Date / Time carbamazepine Allergy Intermediate Verified 05/22/17 02:35 Review of Systems All systems: reviewed and negative except as stated Musculoskeletal: Reports: as per HPI Neurological: Reports: as per HPI Psychiatric: Reports: as per HPI PFS Patient Stated Medical History Depression Yes Addiction Surgical History: Negative for patient Family History: Negative for patient - Social History Smoking status: Current every day smoker Substance use type: methamphetamine Alcohol intake frequency: 0-2 drinks per day Physical Exam - Limitations Limitations: altered mental status - General General appearance: alert, appears intoxicated, in distress - Normal Exams: Head:: Normocephalic without trauma Chest/Respirations:: Clear all whyte, with good airflow, and symmetry bilaterally Abdomen:: Bowel sounds positive, soft, non-tender, non-distended, no hepatosplenomegaly, masses or bruits noted Neurological:: cranial nerves, motor/sensory/cerebellar, exams w/o gross deficits, to observation - Cardiovascular Cardiovascular exam: Present: normal rhythm, tachycardia, normal heart sounds - Skin Skin exam: Present: other (patient has multiple skin lesions on arms and legs and on face.) - Neurological Exam Neurological exam: Present: other (hyperreflexic, spastic. Patient is throwing herself around the bed despite trying to hold still. Arms were flailing during conversation legs are also flailing.) - Psychiatric Psychiatric exam: Present: agitated, anxious, other (patient is very pleasant and trying to carry on a normal conversation despite constant muscle jerks and twitches in arms legs abdomen and face.) Course Vital Signs Temperature 97.6 F 05/22/17 00:52 Pulse Rate 109 H 05/22/17 00:52 Respiratory Rate 22 05/22/17 00:52 Blood Pressure 122/67 05/22/17 00:52 Pulse Oximetry 97 05/22/17 00:52 Temperature 97.9 F 05/23/17 19:50 Pulse Rate 91 05/23/17 23:00 Respiratory Rate 18 05/23/17 23:00 Blood Pressure 107/59 05/23/17 23:00 Pulse Oximetry 100 05/23/17 23:00 Psych - MDM Narrative Medical decision making narrative: Labs show white count of 15.7 with elevated bilirubin of 3:30. Other labs essentially normal. Urine drug screen shows positive methamphetamine. Patient's behavior is as if she is on a synthetic type of stimulant with a methamphetamine base. She was given Ativan total of 2 mg IV and Seroquel 100 mg oral. She was able to rest and fell asleep in the room. She still had some agitated behavior even while sleeping with occasional flailing of arms and legs. I spoke with hospitalist via tele-hospitalist service and patient was admitted for observation overnight due to unknown overdose with elevated white count and bilirubin. - Lab Data Result diagrams: 05/23/17 06:47 05/23/17 06:47 Lab Results 05/22/17 05/22/17 05/22/17 Range/Units 01:37 01:37 01:57 WBC 15.7 H (4.5-11.0) T/MM3 RBC 4.40 (4.00-5.20) M/MM3 Hgb 12.4 (12-16) GM/DL Hct 36.0 (36-46) % MCV 81.8 (80-100) UM3 MCH 28.2 (26-34) UUG MCHC 34.4 (31-37) GM/DL RDW Std Deviation 37.4 (36.9-50.2) FL Plt Count 211 (130-400) T/MM3 MPV 11.7 (9.4-12.4) UM3 Immature Gran % (Auto) 0.3 (0.0-0.5) % Neut % (Auto) 73.3 H (33-66) % Lymph % (Auto) 14.4 L (23-45) % Williamson % (Auto) 11.6 H (0-9.0) % Eos % (Auto) 0.1 (0-4) % Baso % (Auto) 0.3 (0-2) % Neut # 11.5 H (1.8-7.7) T/MM3 Lymph # 2.3 (1-4.8) T/MM3 Williamson # 1.8 H (0-0.8) T/MM3 Eos # 0.0 (0-0.5) T/MM3 Baso # 0.0 (0-0.2) T/MM3 Abs Immat Gran (auto) 0.05 H (0.00-0.03) T/MM3 Turbidity < 20 (0-20) Sodium 133 L (134-144) MEQ/L Potassium 3.9 (3.6-5) MEQ/L Chloride 101 (98-107) MEQ/L Carbon Dioxide 20 L (22-30) MEQ/L Anion Gap 12 (5-15) MEQ/L BUN 29.0 H (7-17) MG/DL Creatinine 1.2 (0.7-1.2) MG/DL GFR Calculation 51 BUN/Creatinine Ratio 24 (6-26) RATIO Glucose 83 (65-110) MG/DL Calculated Osmolality 261 (261-280) MOSM/KG Calcium 9.5 (8.4-10.2) MG/DL Total Bilirubin 3.30 H (0.20-1.30) MG/DL Icterus Index < 2 (0-7) AST 171 H (14-36) U/L ALT 83 H (9-52) U/L Alkaline Phosphatase 70 (38-126) U/L Total Protein 8.0 (6.3-8.2) G/DL Albumin 4.9 (3.5-5.0) G/DL Globulin 3.1 (2.4-3.6) G/DL Albumin/Globulin Ratio 1.6 (1.1-2.2) RATIO TSH 2.94 (0.47-4.68) MIU/L Specimen Hemolysis 131 H (0-25) Ur Collection Type Urine Color (YELLOW) Urine Clarity Urine pH (5.0-8.0) Ur Specific Lambert (1.015-1.025) Urine Protein (NEGATIVE) Urine Glucose (UA) (NEGATIVE) Urine Ketones (NEGATIVE) Urine Occult Blood (NEGATIVE) Urine Nitrate (NEGATIVE) Urine Bilirubin (NEGATIVE) Urine Urobilinogen (NORMAL) EU/DL Ur Leukocyte Esterase (NEGATIVE) Urinalysis Comment Salicylates < 1.0 L (2-20) MG/DL Urine Opiates Screen ng/mL Ur Oxycodone Screen ng/mL Urine Methadone Screen ng/mL Ur Propoxyphene Screen ng/mL Acetaminophen < 10 L (10-30) UG/ML Ur Barbiturates Screen ng/mL U Tricyclic Antidepress ng/mL Ur Phencyclidine Scrn ng/mL Ur Amphetamines Screen ng/mL U Methamphetamines Scrn ng/mL U Benzodiazepines Scrn ng/mL Urine Cocaine Screen ng/mL U Cannabinoids Screen ng/mL Ur Drug Screen Confirm Ur Drug Screen Info Alcohol, Quantitative <10 (<10) MG/DL Hepatitis C Antibody Positive (NEGATIVE) 05/22/17 05/22/17 05/22/17 Range/Units 02:21 02:22 02:22 WBC (4.5-11.0) T/MM3 RBC (4.00-5.20) M/MM3 Hgb (12-16) GM/DL Hct (36-46) % MCV (80-100) UM3 MCH (26-34) UUG MCHC (31-37) GM/DL RDW Std Deviation (36.9-50.2) FL Plt Count (130-400) T/MM3 MPV (9.4-12.4) UM3 Immature Gran % (Auto) (0.0-0.5) % Neut % (Auto) (33-66) % Lymph % (Auto) (23-45) % Williamson % (Auto) (0-9.0) % Eos % (Auto) (0-4) % Baso % (Auto) (0-2) % Neut # (1.8-7.7) T/MM3 Lymph # (1-4.8) T/MM3 Williamson # (0-0.8) T/MM3 Eos # (0-0.5) T/MM3 Baso # (0-0.2) T/MM3 Abs Immat Gran (auto) (0.00-0.03) T/MM3 Turbidity (0-20) Sodium (134-144) MEQ/L Potassium (3.6-5) MEQ/L Chloride (98-107) MEQ/L Carbon Dioxide (22-30) MEQ/L Anion Gap (5-15) MEQ/L BUN (7-17) MG/DL Creatinine (0.7-1.2) MG/DL GFR Calculation BUN/Creatinine Ratio (6-26) RATIO Glucose (65-110) MG/DL Calculated Osmolality (261-280) MOSM/KG Calcium (8.4-10.2) MG/DL Total Bilirubin (0.20-1.30) MG/DL Icterus Index (0-7) AST (14-36) U/L ALT (9-52) U/L Alkaline Phosphatase (38-126) U/L Total Protein (6.3-8.2) G/DL Albumin (3.5-5.0) G/DL Globulin (2.4-3.6) G/DL Albumin/Globulin Ratio (1.1-2.2) RATIO TSH (0.47-4.68) MIU/L Specimen Hemolysis (0-25) Ur Collection Type Urine, clean catch Urine Color Yellow (YELLOW) Urine Clarity Clear Urine pH 5.5 (5.0-8.0) Ur Specific Lambert >=1.030 H (1.015-1.025) Urine Protein Trace A (NEGATIVE) Urine Glucose (UA) Negative (NEGATIVE) Urine Ketones Trace A (NEGATIVE) Urine Occult Blood Trace-intact (NEGATIVE) Urine Nitrate Negative (NEGATIVE) Urine Bilirubin 1+ A (NEGATIVE) Urine Urobilinogen 0.2 (NORMAL) EU/DL Ur Leukocyte Esterase Negative (NEGATIVE) Urinalysis Comment Microscopic not ind. Salicylates (2-20) MG/DL Urine Opiates Screen Negative ng/mL Ur Oxycodone Screen Negative ng/mL Urine Methadone Screen Negative ng/mL Ur Propoxyphene Screen Negative ng/mL Acetaminophen (10-30) UG/ML Ur Barbiturates Screen Negative ng/mL U Tricyclic Antidepress Negative ng/mL Ur Phencyclidine Scrn Negative ng/mL Ur Amphetamines Screen Positive ng/mL U Methamphetamines Scrn Positive ng/mL U Benzodiazepines Scrn Negative ng/mL Urine Cocaine Screen Negative ng/mL U Cannabinoids Screen Negative ng/mL Ur Drug Screen Confirm Sent out Ur Drug Screen Info Ref lab rpt scanned Alcohol, Quantitative (<10) MG/DL Hepatitis C Antibody (NEGATIVE) Disposition Clinical Impression: Drug overdose, Methamphetamine addiction Disposition: 02 To [facility] Condition: Stable Time of Disposition: 15:46 - Seen By: physician
[2017-05-22] MEDS ORDERED: QUETIAPINE 100 MG TABLET PO ONE (01:37)
--- NOTE | 2017-05-22 04:24 | History & Physical Report ---
<Charan Kitchen I - Last Filed: 05/22/17 04:10> History of Present Illness Date: 05/22/17 Chief complaint: Anxiety HPI: This is a 36-year-old female patient who was brought to the emergency department by EMS, apparently she has been recently living under a local bridge. The emergency room physician relates that she moved here from [facility] to attend a rehab program, but when she got here elected not to go and has been on a several day methamphetamine binge. in the emergency department, she was initially described as pleasant, but quite anxious with flight of ideas and exhibiting myoclonic jerks/spasms which appeared to be rather incapacitating. She was given Seroquel, which is a home medication, and Ativan which made her much more comfortable and was somnolent thereafter. She was hemodynamically stable but was understandably felt unsafe to return to her homeless state tonight, and is thus placed in observation status for further evaluation and management. Review of Systems ROS unobtainable: due to mental status [facility] Patient Stated Medical History Depression Yes Not obtainable at the time of my exam Surgical History: Negative for patient - Social History Smoking status: Current every day smoker Alcohol intake frequency: 0-2 drinks per day Housing: homeless (By report recently located to [place]) Medications Home Medications Medication Instructions Recorded Confirmed Type Citalopram Hydrobromide [Celexa] 0.5 tab PO DAILY #0 tab 02/15/17 05/22/17 History Quetiapine [SEROquel] 100 mg PO BID #0 tab 02/15/17 05/22/17 History buPROPion HCl [Bupropion Xl] 150 mg PO DAILY #0 02/15/17 05/22/17 History Allergies Allergy/AdvReac Type Severity Reaction Status Date / Time carbamazepine Allergy Intermediate Verified 05/22/17 02:35 Exam Vital Signs: Temperature 97.6 F 05/22/17 00:52 Pulse Rate 71 05/22/17 03:45 Respiratory Rate 13 05/22/17 03:45 Blood Pressure 94/52 05/22/17 03:30 Pulse Oximetry 100 05/22/17 03:45 Oxygen Delivery Method Room Air Telemetry Rhythm: Sinus Rhythm Height: 5 ft 3 in Weight: 53.1 kg - Constitutional Present: mild distress, thin, disheveled, agitated (primarily appears to want to be left alone: in that she has purposeful movements to help pull her covers up but is otherwise minimally cooperative with staff, not verbal, not opening her eyes. Does exhibit some psychomotor agitation but when covered and left alone for a moment, this appears to resolve rapidly) - Routine HEENT Exam Eye: Absent: EOMI (Does not open her eyes to request) - Routine Neck Exam Present: supple, full ROM - Routine Respiratory Exam Present: CTA bilaterally. Absent: dyspnea - Routine Cardiovascular Exam Present: RRR - Routine Abdominal Exam Present: soft, non distended, non tender. Absent: tenderness, distended - Routine Extremities Exam Absent: cyanosis, clubbing, edema - Routine Skin Exam Present: intact. Absent: lesions (No immediately obvious track lacey, she was not very cooperative with examination, 2 nurses at the bedside at the time) - Routine Neurological Exam Present: altered mental status, moving all extremities, normal tone. Absent: oriented X3 (? difficult to assess but did not answer questions as she had reportedly been doing earlier) - Routine Psychiatric Exam Present: agitated, unable to assess. Absent: normal affect Results - Labs CBC & Chem 7: 05/22/17 01:37 05/22/17 01:37 Labs: Tbili 3.3 Assessment and Plan (1) Toxic encephalopathy Current visit: Yes Status: Acute she was described as conversational but tangential in the emergency department, before receiving Seroquel and Ativan. At the time of my evaluation , she was altered, minimally cooperative with staff, did not open her eyes to request or verbalize. Her urine drug screen is positive for methamphetamine, she had apparently stated to the emergency room provider that she had not had any methamphetamine for at least 2 days. It is possible that she intentionally or unintentionally took any number of additional substances. Especially given her current homeless state, it is appropriate to observe her in the intensive care setting with supportive care and serial examination. Would continue with benzodiazepine administration intravenously as needed. We will provide intravenous half-normal saline until she is able to take by mouth Reliably and safely. 05/22/17 04:32 (2) Elevated bilirubin Current visit: Yes Status: Acute This may also be toxic in origin. Her baseline is unknown. Her hepatitis status is unknown. She does not appear to be tender in her abdomen at this time. She is afebrile. We will follow with serial examination, obtain a more detailed history when available by the patient or a surrogate historian, and follow-up comprehensive metabolic panel (after IV) is ordered for noon today. 05/22/17 04:37 DVT Prophylaxis: SCD's Assessment and Plan: We will provide further symptomatic, supportive, and diagnostic cares, as the current workup, or changes in her clinical scenario, indicate. Hospital Course Summary Disclaimer: The visit summary below is not to be considered part of the above Progress Note. <Tigre Bergeron - Last Filed: 05/22/17 20:13> History of Present Illness Date: 05/22/17 Exam Vital Signs: Temperature 98.3 F 05/22/17 19:30 Pulse Rate 83 05/22/17 19:45 Respiratory Rate 16 05/22/17 19:45 Blood Pressure 93/58 05/22/17 19:00 Pulse Oximetry 99 05/22/17 19:45 Oxygen Delivery Method Room Air Height: 1.6 m Weight: 52.8 kg Results - Labs CBC & Chem 7: 05/22/17 12:42 05/22/17 12:42 Assessment and Plan (1) Toxic encephalopathy Current visit: Yes Status: Acute (2) Elevated bilirubin Current visit: Yes Status: Acute 05/22/17 20:04 Have independently interviewed and examined pt. Chart reviewed. reviewed above note and concur. CC: Racing heartbeat and hallucinations. HPI: 36 y/o WF present to [facility] via EMS secondary to above complaints. Apparently recently using meth (stopped several days ago), but concern that someone might have given her something. Very encephalopathic in ED. Somnolence once arrived in CCU. I have been in contact with CCU nursing all day, an report of continued somnolence. Was able to wake earlier this evening to eat, but then went back to sleep. At my evaluation this evening, pt still very somnolent. Will waken to verbal stimuli and answer questions briefly, but not able to engage in meaningful conversation. History obtained from chart and nursing personal. PMHx: Bipolar, ADD, Cervical disk disease, Polysubstance abuse, Hx Allergies: carbamazepine Meds: see MAR SHx: apparently homeless FHx: pt not able to answer due to somnolence ROS: not able to obtain to to somnolence Exam: GEN: [id number] somnolent HEENT: NC/AT MMM Neck: midline, non rigid Lungs: clear bilaterally, no distress on RA CV: regular AB: soft nt/nd +BS EXT: no edema SKIN: warm and dry Neuro: moves ext spontaneously Psych: somnolent, not agitated Assessment: as above Plan: OBS, IVF for hydration, allow for rest, safe supportive environment, CM to help with discharge disposition, monitor lab. Hospital Course Summary Disclaimer: The visit summary below is not to be considered part of the above Progress Note.
[2017-05-22] MEDS ORDERED: ONDANSETRON 4 MG/2 ML INJECTION IVP PRN (04:56)
[2017-05-22] MEDS ORDERED: MORPHINE SULFATE 2 MG SYRINGE IVP PRN (04:56)
[2017-05-22] MEDS ORDERED: D5-1/2NS 1,000 ML IV SCH (04:56)
[2017-05-22] MEDS: NS 1,000 ML IV SCH ×2 (10:32→21:12)
[2017-05-22] MEDS ORDERED: ACETAMINOPHEN 500 MG TABLET PO PRN (16:19)
[2017-05-22] MEDS: NS with KCL 20 mEq 20 MEQ/1,000 ML IV.SOLN IV SCH (21:12)
[2017-05-22] MEDS: QUETIAPINE 100 MG TABLET PO SCH (21:12)
[2017-05-23] MEDS: NS with KCL 20 mEq 20 MEQ/1,000 ML IV.SOLN IV SCH ×2 (08:00→19:30)
[2017-05-23] MEDS: QUETIAPINE 100 MG TABLET PO SCH ×3 (08:52→21:52)
[2017-05-23] MEDS ORDERED: BuPROPion XL 150mg (24HR) TABLET PO SCH (09:00)
[2017-05-23] MEDS ORDERED: CITALOPRAM 20 MG TABLET PO SCH (09:00)
--- NOTE | 2017-05-23 14:19 | Progress Note ---
Subjective: F/U: Encephalopathy Doing better today, but still very sleeping. Sleeping most of the day. Will awaken and answers questions. Wakes enough to eat. Denies ab pain or nausea with eating. Breathing well. Objective Vital signs: Temperature 98.3 F 05/23/17 08:00 Pulse Rate 90 05/23/17 12:00 Respiratory Rate 11 05/23/17 10:00 Blood Pressure 97/55 05/23/17 10:00 Pulse Oximetry 99 05/23/17 10:00 Oxygen Delivery Method Room Air Weight: 52.8 kg - Constitutional Present: no acute distress, well nourished, well developed, thin, somnolent - Routine HEENT Exam Head: Present: normocephalic, atraumatic Eye: Present: EOMI, PERRL ENT: Present: mucous membranes moist - Routine Respiratory Exam Present: CTA bilaterally. Absent: rales, rhonchi, wheezes, crackles - Routine Cardiovascular Exam Present: RRR - Routine Abdominal Exam Present: soft, normoactive bowel sounds, non distended, non tender - Routine Extremities Exam Present: no edema, pulses intact. Absent: cyanosis, clubbing - Routine Musculoskeletal Exam Musculoskeletal: Present: no clubbing or cyanosis, normal strength - Routine Skin Exam Present: intact, warm, normal turgor - Routine Neurological Exam Present: alert, CN II-XII intact, vision grossly intact, hearing grossly intact. Absent: motor deficit - Routine Psychiatric Exam Absent: anxious, agitated, paranoid Results - Labs CBC & Chem 7: 05/23/17 06:47 05/23/17 06:47 Assessment and Plan (1) Toxic encephalopathy Current visit: Yes Status: Acute she was described as conversational but tangential in the emergency department, before receiving Seroquel and Ativan. At the time of my evaluation , she was altered, minimally cooperative with staff, did not open her eyes to request or verbalize. Her urine drug screen is positive for methamphetamine, she had apparently stated to the emergency room provider that she had not had any methamphetamine for at least 2 days. It is possible that she intentionally or unintentionally took any number of additional substances. Especially given her current homeless state, it is appropriate to observe her in the intensive care setting with supportive care and serial examination. Would continue with benzodiazepine administration intravenously as needed. We will provide intravenous half-normal saline until she is able to take by mouth Reliably and safely. 05/22/17 04:32 (2) Elevated bilirubin Current visit: Yes Status: Acute DVT Prophylaxis: SCD's Resuscitation Status: Full Code Assessment and Plan: Diet advanced. CM discussed about substance abuse treatments-pt declined. [facility] information offer, pt reports has a safe place to stay. With oral drive increasing, can stop IVF. Anticipate discharge today. Case discussed with CCU nursing and CM. Time spent with patient care and discharge coordination greater than 25 minutes. Sepsis Assessment - Evaluation Sepsis screening result: No Definite Risk Hospital Course Summary Disclaimer: The visit summary below is not to be considered part of the above Progress Note. Hospital Course: 05/22/17 OBS, IVF for hydration, allow for rest, safe supportive environment, CM to help with discharge disposition, monitor lab. 05/23/17 Doing better today, but still very sleeping. Sleeping most of the day. Will awaken and answers questions. Wakes enough to eat. Denies ab pain or nausea with eating. Breathing well. Diet advanced. CM discussed about substance abuse treatments-pt declined. [facility] information offer, pt reports has a safe place to stay. With oral drive increasing, can stop IVF. Anticipate discharge today.
[2017-05-23 19:51] VITALS: TEMP 97.9
--- NOTE | 2017-05-23 22:00 | Discharge Summary ---
Discharge Information Date of admission: 05/22/17 04:04 Anticipated date of discharge: 05/23/17 Attending Physician: Tigre Bergeron MD - Discharge Diagnosis (1) Toxic encephalopathy Status: Acute (2) Elevated bilirubin Status: Acute - Laboratory Labs: 05/23/17 06:47 05/23/17 06:47 History of Present Illness HPI: This is a 36-year-old female patient who was brought to the emergency department by EMS, apparently she has been recently living [place] a local bridge. The emergency room physician relates that she moved here from [facility] to attend a rehab program, but when she got here elected not to go and has been on a several day methamphetamine binge. in the emergency department, she was initially described as pleasant, but quite anxious with flight of ideas and exhibiting myoclonic jerks/spasms which appeared to be rather incapacitating. She was given Seroquel, which is a home medication, and Ativan which made her much more comfortable and was somnolent thereafter. She was hemodynamically stable but was understandably felt unsafe to return to her homeless state tonight, and is thus placed in observation status for further evaluation and management. For complete details of the H&P, refer to that document. Objective Vital signs: Temperature 97.9 F 05/23/17 19:50 Pulse Rate 77 05/23/17 21:00 Respiratory Rate 14 05/23/17 21:00 Blood Pressure 99/54 05/23/17 21:00 Pulse Oximetry 98 05/23/17 21:00 Oxygen Delivery Method Room Air Weight: 52.8 kg Hospital Course This is a general summary of the patient's hospital course. For more details refer to the complete medical record. Hospital course: 05/22/17 OBS, IVF for hydration, allow for rest, safe supportive environment, CM to help with discharge disposition, monitor lab. 05/23/17 Doing better today, but still very sleeping. Sleeping most of the day. Will awaken and answers questions. Wakes enough to eat. Denies ab pain or nausea with eating. Breathing well. Diet advanced. CM discussed about substance abuse treatments-pt declined. [facility] information offer, pt reports has a safe place to stay. With oral drive increasing, can stop IVF. Anticipate discharge today. Time spent with patient: discharge greater than 30 minutes DVT Prophylaxis: SCD's Discharge Plan - Med Rec/Dispo Referrals/Follow Up: [facility] [Provider Group] - 1 Week Prescriptions: Continue Quetiapine [SEROquel] 100 mg PO BID #0 tab buPROPion HCl [Bupropion Xl] 150 mg PO BID #0 Citalopram Hydrobromide [Celexa] 0.5 tab PO DAILY #0 tab Discharge Instructions/Outpatient Orders: Final Provider Discharge Instructions Location: Determined By Patient - Disposition 01 Discharged Home, Self-Care
[2017-05-23 23:28] VITALS: BP 107/59; PULSE 91; RESP 18; O2SAT 100
== END 2017-05-23 23:23 | disposition home or self-care (01) ==
LOC: CCU 00:52 → ED 00:52 → CCU 04:15
PROVIDERS: ADMIT Internal Medicine; ATTEND Hospitalist